=== PATIENT | male | born 1935 | race Caucasian/White ===

== ENCOUNTER 2016-12-30 07:05 | Observation (INO) | payer OTHER ==
[~2016-12-30] VITALS: Ht 172.7 cm; Wt 92.3 kg
[2016-12-30] VITALS (13 sets, daily range): BP systolic 106–148; BP diastolic 54–75; PULSE 72–90; RESP 16–24; O2SAT 92–100
--- NOTE | 2016-12-30 07:16 | ED.REPORT ---
HPI-Chest Pain 40 and Over Date of Service December 30, 2016 ED Provider: Chalo Lester DO The pt is a 81 y/o w/ a hx of COPD on 2L home O2, HTN, hyperlipidemia, male presenting to the ED with his complaining of chest pain onset yesterday. He describes the pain as a substernal pressure, experiences it w/ inspiration and has never experienced anything like this before. He also is experiencing SOB. He took an aspirin for the chest pain and took two ibuprofen for some tooth pain he was experiencing which helped w/ the pain. He was [facility] a [facility] ago and was told he had some slight lower extremity edema. He had a stress test in the past and was told he had a LBBB. If his O2 saturation level is in the 90s he does not use his oxygen machine but when it drops below that he sets it to 2 liters. When he exercises he sets it to 3-4 liters. He has also been experiencing a productive cough for the last year. Denies fever, pain or tingling in UE, or chills. He takes a daily 81 mg Aspirin. The reports the pt taking many medications but is not sure what they are and there are no records available - she is trying to obtain a list. Nursing Notes Stated Complaint: SOB,CHEST PAIN Chief Complaint: Chest pain Nursing Notes Reviewed: Yes Allergies: Coded Allergies: No Known Allergies (Unverified , 12/30/16) Scheduled Colchicine (Colchicine) 0.6 Mg Tablet 0.6 MG PO BID Tiotropium [place] (Spiriva) 18 Mcg Cap.w.dev 18 MCG IH BID General Time Seen by MD: 07:16 Chief Complaint Chest pain Hx Obtained From: Patient Arrived By: Walk-in Sudden in Onset?: Yes Onset Occurred: Yesterday Symptom Duration: Since onset Recent Healthcare: No recent doctor visit, No recent hospitalization Past Medical History Past Medical History Uses a CPAP machine LE edema Cough for the last year COPD HTN Hyperlipidemia Past Surgical History None reported Smoking History Former Smoker Social History Other Social History: Good social support Ambulatory Status Independent Review of Systems Denies pain or tingling in UE Constitutional: Denies: Chills, Fever Respiratory: Reports: Shortness of breath Cardiovascular: Reports: Chest pain, Edema (LE) Complete sys rev & neg: except as marked. Physical Exam Initial Vital Signs Vital Signs (First) Date Time Temp Pulse Resp B/P Pulse Ox O2 Delivery O2 Flow Rate FiO2 12/30/16 07:16 36.1 90 18 129/69 100 Nasal Cannula 4 Initial VS: Reviewed General/Constitutional: Awake, Alert Distress / Hydration: Positive: Distress mild Respiratory / Chest: Breath sounds NL, Breath sounds = bilat, No respiratory distress, No rales, No rhonchi, No wheezing, No stridor, No chest tenderness No chest tenderness Cardiovascular: Regular rhythm, Heart sounds NL Heart Rate / Rhythm: Positive: Tachycardia Trace LE edema Abdomen: Soft, Non-tender, McBurney's non-tender, No guarding, No rebound, BS normoactive, No distention, No hernia, No palpable mass Neck: Atraumatic, Supple, Full range of motion Back: Atraumatic, Full range of motion Lower Extremity / Pelvis / MS: Atraumatic, Full range of motion Skin: Atraumatic, Color NL, No rash, Warm, Dry Neurologic: Oriented X3, Speech NL Psychiatric: Affect NL, Mood NL Head / Eyes: Atraumatic, Normocephalic Interpretation & Diagnostics Lab Results Interpretation Result Diagram: 12/30/16 0715 12/30/16 0715 Test 12/30/16 07:15 12/30/16 07:44 White Blood Count 9.0th/mm3 (3.8-10.1) Red Blood Count 3.94mil/mm3 (4.40-5.80) Hemoglobin 13.1g/dL (13.8-17.2) Hematocrit 39.6% (41.0-50.0) Mean Corpuscular Volume 100.5fL (81-100) Mean Corpuscular Hemoglobin 33.2pg (27.0-35.0) Mean Corpuscular Hemoglobin Concent 33.1% (32.0-37.0) Red Cell Distribution Width 13.1% (12.3-15.4) Platelet Count 149bil/L (150-400) Neutrophils (%) (Auto) 72.3% (40-74) Lymphocytes (%) (Auto) 13.3% (14-46) Monocytes (%) (Auto) 9.9% (4-12) Eosinophils (%) (Auto) 4.1% (0-5) Basophils (%) (Auto) 0.2% (0-3) Sodium Level 138mEq/L (134-144) Potassium Level 4.2mEq/L (3.5-5.2) Chloride Level 100mEq/L (97-108) Carbon Dioxide Level 21mmol/L (18-29) Blood Urea Nitrogen 22mg/dL (8-27) Creatinine 0.96mg/dL (0.76-1.27) Estimat Glomerular Filtration Rate 80mL/min (>59) Glucose Level 137mg/dL (60-99) Calcium Level 9.6mg/dL (8.5-10.1) Magnesium Level 1.8mg/dL (1.6-2.6) Total Bilirubin 1.0mg/dL (0.0-1.2) Aspartate Amino Transf (AST/SGOT) 30U/L (0-50) Alanine Aminotransferase (ALT/SGPT) 30U/L (0-44) Alkaline Phosphatase 125U/L (25-160) Troponin T 0.010ug/L (0.0-0.011) Total Protein 7.4g/dL (6.4-8.4) Albumin 4.2g/dL (3.4-5.0) D-Dimer 2.63mg/L FEU (<0.50) Pro-B-Type Natriuretic Peptide 462.6pg/mL (0-486) Hold Lopez Top Tube Received (Received) ECG Interpretation ECG Interpretation: Rate 89 Sinus rhythm normal LBBB Time: 07:25 Interpreted by: ED physician Repeat ECG: Repeat ECG unchanged X-Ray Chest Interpretation Chest Xray Interpretation: IMPRESSION: 1. Findings compatible with COPD without definite acute cardiopulmonary disease. Dictated by: Mono Santana M.D. on 12/30/2016 at 9:58 Approved by: Mono Santana M.D. on 12/30/2016 at 9:59 View: Portable, [address] Chest Interpretation IMPRESSION: 1. No evidence of pulmonary embolism. 2. 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 Recommend further evaluation with thyroid ultrasound to assess for possible percutaneous fine needle aspiration. 3. Jitu-oa-bycomhbz centrilobular emphysematous changes in the lungs. Dictated by: Mono Santana M.D. on 12/30/2016 at 8:47 Approved by: Mono Santana M.D. on 12/30/2016 at 8:55 Interpretation / Wet Read by: Interpret - Radiologist Re-Eval/Medical Decision Med Decision/Clinical Course Concern for unstable angina. Patient will be admitted. Source of Hx: Old records Time of Eval: 08:16 Re-Evaluation/Progress Note: CP decreased after nitro administration but still present. Repeat EKG unchanged. Time of Eval: 09:21 Re-Evaluation/Progress Note: Pt rechecked. Informed pt of need for admission. Pt understands and agrees with plan for admission. All questions addressed. Consultation : Referral / Consult Name: Mary Kirkland DO Consulted With: Hospitalist Call Returned at: 19:15 Fender Finisher: Will see patient, Agrees with eval, Agrees with plan, Accepts admit Counseled Regarding: Diagnosis, Lab results, Need for admission Discharge & Departure Primary Impression: Unstable angina Disposition: ADMITTED TO HOSPITAL Discharge Condition All VS Reviewed: Yes Condition: Stable Scribe Attestation Portions of this note were transcribed by Brendon House and Earl Moncada. I, Dr. Elbert Walker personally performed the history, physical exam and medical decision- making; I reviewed and confirmed the accuracy of the information in the transcribed note. Signed by: Radha Ignacio, 12/30/16 and 0939. Chalo Lester DO December 30, 2016 07:16 Brendon House December 30, 2016 08:34 EARL MONCADA December 30, 2016 09:51
[2016-12-30 07:50] LABS: BASOPHILS % (AUTO) 0.2 % (0-3); EOSINOPHILS % (AUTO) 4.1 % (0-5); MONOCYTES % (AUTO) 9.9 % (4-12); Mean Corpuscular Hemoglobin 33.2 pg (27.0-35.0); Mean Corpuscular Volume 100.5 fL (81-100); NEUTROPHILS % (AUTO) 72.3 % (40-74); Platelet Count 149 bil/L (150-400)
[2016-12-30 08:18] LABS: TROPONIN T 0.01 ug/L (0.0-0.011)
[2016-12-30 08:29] LABS: Magnesium 1.8 mg/dL (1.6-2.6)
[2016-12-30] MEDS ORDERED: COLC0.6T55 PO (08:37)
[2016-12-30] MEDS ORDERED: TIOT18CA3 IH (08:37)
--- NOTE | 2016-12-30 09:02 | DRSVH ---
PROCEDURE: CT ANGIO CHEST PULMONARY EMBOLISM ([id number]) INDICATIONS: chest pain elevated ddimer TECHNIQUE: After the administration of intravenous contrast, 2 mm thick sections acquired from the pulmonary api berenice to the posterior costophrenic angles. 3-dimensional maximum intensity projection (MIP) coronal a nd sagittal reformats were then acquired through the thorax. For radiation dose reduction, the follo wing was used: automated exposure control, adjustment of mA and/or kV according to patient size. COMPARISON: [facility], CR, XR CHEST 1VW (PORTABLE), 12/30/2016, 7:07. FINDINGS: Image quality: Excellent. Pulmonary arteries: Pulmonary arteries are normal in size, and demonstrate no intraluminal filling d efects to suggest central pulmonary embolism. Lungs and pleura: There is mild atelectasis or scarring in the lung bases. Mild to moderate centrilo bular emphysematous changes are demonstrated. No pleural effusions or pneumothorax. Central and per ipheral airways are patent. Mediastinum: Heart size is normal, without pericardial effusion. There is coronary arterial vascula r calcification. No mediastinal or hilar adenopathy. There is a substernal mass partially visualize d likely originating from the right thyroid lobe measuring approximately 3.2 x 2.8 in transverse dime nsion by at least 4 cm in craniocaudal dimension. This demonstrates a few peripheral foci of calcifi cations. Thoracic aorta is normal in caliber and enhancement. Esophagus is normal in caliber, witho ut hiatal hernia. Bones and chest wall: No suspicious bony lesions. Ribs and thoracic spine appear intact throughout. Multilevel degenerative disc disease is demonstrated throughout the thoracic spine. No axillary or supraclavicular adenopathy. Abdomen: Visualized upper abdomen demonstrates a probable exophytic right renal cyst which is partia lly visualized as well as a small exophytic left renal cyst. There are encapsulated areas of fat lio ng the right diaphragmatic kimberley adjacent to the visualized abdominal aorta with mild associated mass effect. IMPRESSION: 1. No evidence of pulmonary embolism. 2. 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 Recommend further evaluation with thyroid ultrasound to assess for possible percutaneous fine needl e aspiration. 3. Ekre-bm-lnsvfbjd centrilobular emphysematous changes in the lungs. Dictated by: Mono Santana M.D. on 12/30/2016 at 8:47 Approved by: Mono Santana M.D. on 12/30/2016 at 8:55
--- NOTE | 2016-12-30 10:06 | DRSVH ---
PROCEDURE: X-RAY CHEST ONE VIEW, PORTABLE ([id number]) INDICATIONS: chest pain TECHNIQUE: One view of the chest was acquired. COMPARISON: [facility], CT, CT ANGIO CHEST PE, 12/30/2016, 8:45. FINDINGS: Surgical changes and devices: None. Lungs and pleura: No pleural effusions or pneumothorax. There are linear opacities in the lung base s likely representing scarring. There is hyperinflation of the lungs with flattening of the hemidiaph ragms compatible with COPD. Mediastinum: Mediastinal contours appear normal. Heart size is normal. Bones and chest wall: No suspicious bony lesions. Overlying soft tissues appear unremarkable. IMPRESSION: 1. Findings compatible with COPD without definite acute cardiopulmonary disease. Dictated by: Mono Santana M.D. on 12/30/2016 at 9:58 Approved by: Mono Santana M.D. on 12/30/2016 at 9:59
[2016-12-30] MEDS ORDERED: Alum-Mag Hydrox-Simeth 30 mL Suspension PO PRN ×2 (10:25→13:40)
[2016-12-30] MEDS ORDERED: Ondansetron 2 mg/mL 2 mL Inj IVPUSH PRN ×2 (10:25→13:40)
--- NOTE | 2016-12-30 13:00 | PCM.HPMED ---
Subjective Date of Service December 30, 2016 Primary Provider: Admitting Physician: Myra Adams MD Primary Care Physician: Noprobert Attending Physician: Myra Adams MD Allergies Coded Allergies: No Known Allergies (Unverified , 12/30/16) PMH Social History Hx Alcohol Use: Yes (occasionally) Hx Substance Use: No Smoking Status: Former Smoker Exam Vital Signs Vital Sign - Last Date Time Temp Pulse Resp B/P Pulse Ox O2 Delivery O2 Flow Rate FiO2 12/30/16 11:33 81 12/30/16 11:21 Supplement Oxygen 12/30/16 11:17 36.7 22 132/75 96 2.00 Lab and Diagnostics Result Diagram: 12/30/16 0715 12/30/1615 Assessment & Plan HPI: Patient is an 81-year-old male who presents to the emergency room with the complaint of chest pain. The patient states that he has been having chest pain since yesterday however he thought that it would go away. When the chest pain did not go away he decided to tell both his and daughter with whom he is currently traveling. The patient states that he does not have any history of CAD or angina and that this is new for him however his PCP has recently put him on "a water pill" because he was having some lower extremity edema. However no formal diagnosis of CHF with made. The patient currently states that he has some shortness of breath, no chest pain this has been relieved since the ER, no nausea, no vomiting, no diarrhea. The patient does have a chronic cough. Home medications: Allopurinol 100 mg 2 tabs by mouth daily Spiriva inhale 1 puff every morning Atenolol 50 mg 1 tab by mouth daily Losartan 25 mg 1 tab by mouth daily Atorvastatin 40 mg by mouth daily Clindamycin phosphate topical solution when necessary dry scalp Proventil when necessary Omeprazole 20 mg 1 by mouth twice a day 30-60 minutes before a meal Guaifenesin 400 mg tabs 1 tab by mouth twice a day Hydrochlorothiazide/triamterene 25/37.5 milligrams 1 by mouth daily Symbicort 160 g 2 puffs in the morning 2 puffs at night Respiratonic 2 drops by mouth daily (medication) A stool softener 100 mg by mouth one Twice a day Zolpidem 1 tab by mouth daily at bedtime when necessary sleep Tamsulosin 0.4 mg daily Allergies: No known allergies PMHx: Hypertension COPD Hyperlipidemia BPH. Constipation GERD Gout Pityriasis SHx: Left great toe surgery Bilateral knee replacements Left total hip replacement Bilateral shoulder replacements FHx: Mother in childbirth Father age 72 from colon cancer Brother age 63 from melanoma cancer SocHx: Occupation: Former law enforcement and Tobacco history: Quit 35 years ago previous smoking history one pack per day for 25 years Alcohol use: Occasional Drug use: Patient denies ROS: A complete review of systems was performed or attempted to be performed. Please see HPI for pertinent positives, all other systems are negatives. Physical Exam: GEN: Patient was awake, alert, responding appropriately to questions HEENT: Pupils equal round and reactive to light, extraocular eye muscles intact , Neck soft supple, trachea midline, nomocephalic/atraumati, oxygen in place CV: +S1/S2, regular rate and rhythm, no murmur auscultated Respiratory: Positive mild wheeze no rales or rhonchi GI: +bowel sounds x4, soft, compressible, nontender to palpation EXT: no clubbing, cyanosis, trace edema Neuro: Cranial nerves II-XII grossly intact Psych: mood and affect were appropriate Assessment and Plan 81-year-old male with the complaint of chest pain Chest pain/angina -Trend troponins -If negative stress test in the morning -Nitroglycerin when necessary -Nothing by mouth at midnight - Hemoglobin A1c pending -Aspirin 325 mg daily -Echo -Follow up labs morning -Continue to monitor Hypertension (currently stable) -Continue home medication of atenolol however decrease the dose to 25 mg daily -Hold home dose of losartan 25 mg daily -Hold home dose of HCTZ 25 mg daily -Hold home dose triamterene 37.5 mg by mouth daily -Continue to monitor blood pressure at this time the patient's blood pressure is relatively stable at 132/75. We will continue to monitor and restart patient 's home medications as needed. Hyperlipidemia -Atorvastatin 40 mg daily -Lipid panel pending COPD (currently stable) -Continue oxygen 2 L while sleeping and at rest, 3 L with activity -Maintain oxygen saturations at 88% and above -If patient is at rest and satting at 88% or above the patient may remove his oxygen only while at rest -Continue Mucinex twice a day -Continue Spiriva and Symbicort BPH (currently stable) -Continue tamsulosin 0.4 mg daily GERD -20 mg of omeprazole twice a day 30-60 minutes prior to meals Constipation -Colace 100 mg twice a day Insomnia -Restoril 30 mg when necessary Diet: Heart healthy DVT prophylaxis: Heparin subcutaneous 3 times a day Code Status: Full code Disposition: Due to the nature of the patient's current diagnosis anticipated stay is greater than 2 midnight Time spent One hour Mary Kirkland DO December 30, 2016 13:00
[2016-12-30] MEDS ORDERED: Polyethylene Glycol (PEG) 17 Gm Powder PO PRN (13:40)
[2016-12-30] MEDS ORDERED: Albuterol HFA 60 Puff 8 Gm Inhaler INHALATION PRN (14:00)
[2016-12-30] MEDS ORDERED: Budesonide-Formot 160-4.5 mCg 6.9 Gm Inhaler INHALATION SCH (14:00)
[2016-12-30] MEDS ORDERED: Albuterol 2.5 mg/3 mL Inhalation Solution NEB PRN (14:20)
[2016-12-30] MEDS ORDERED: ZYL100 PO (14:44)
[2016-12-30] MEDS ORDERED: LOSA25TA21 PO (14:45)
[2016-12-30] MEDS ORDERED: ATEN50TA PO (14:45)
[2016-12-30] MEDS ORDERED: LIP40 PO (14:46)
[2016-12-30] MEDS ORDERED: ALBU6.7H INH (14:47)
[2016-12-30] MEDS ORDERED: CLIN60SO2 TOP (14:47)
[2016-12-30] MEDS ORDERED: [UNRECOGNIZED DRUG - OTHER] PO (14:48)
[2016-12-30] MEDS ORDERED: DOCU240C41 PO (14:48)
[2016-12-30] MEDS ORDERED: TAMS0.4C98 PO (14:49)
[2016-12-30] MEDS ORDERED: OMEP20CA11 PO (14:49)
[2016-12-30] MEDS ORDERED: ZOLP5TAB6 PO (14:49)
[2016-12-30] MEDS ORDERED: GUAI400T57 PO (14:50)
[2016-12-30] MEDS ORDERED: TRIA1CAP5 PO (14:51)
[2016-12-30] MEDS ORDERED: SYMINH INHALATION (14:51)
[2016-12-30] MEDS: Tiotropium 18mcg/Cap 5 Capsule Inhaler Kit INHALATION SCH (14:59)
[2016-12-30] MEDS: Albuterol 2.5 mg/3 mL Inhalation Solution NEB SCH ×2 (16:30→19:51)
[2016-12-30] MEDS: Pantoprazole 20 mg ER24 Tablet PO SCH (16:42)
[2016-12-30] MEDS: Heparin 5,000 Unit/mL Inj SUBQ SCH (16:43)
--- NOTE | 2016-12-30 18:09 | PCM.ADCARE ---
Advance Care Planning Note Plan: Purpose of encounter: Goals of care Parties in attendance: The patient, his , and daughter Decisional capacity: Good Plan: The patient is aware of the current diagnosis and would like to continue to be full code. The patient and family understands that this means for chest compressions, intubation, pressors, and all measures involved with CPR. CODE STATUS: Full code Time spent with advanced care planning: Greater than 16 minutes Mary Kirkland DO December 30, 2016 18:09
[2016-12-30] MEDS: Fluticasone-Salmeterol 500-50 Inhaler INHALATION SCH (19:49)
[2016-12-30] MEDS: guaiFENesin 600 mg ER12 Tablet PO SCH (19:49)
[2016-12-31] VITALS (10 sets, daily range): BP systolic 107–118; BP diastolic 57–66; PULSE 70–90; RESP 16–20; O2SAT 92–98
[2016-12-31] MEDS: Albuterol 2.5 mg/3 mL Inhalation Solution NEB SCH ×4 (00:11→20:30)
[2016-12-31] MEDS: Heparin 5,000 Unit/mL Inj SUBQ SCH ×3 (00:30→16:00)
[2016-12-31 06:41] LABS: Mean Corpuscular Hemoglobin 32.8 pg (27.0-35.0); Mean Corpuscular Volume 100.3 fL (81-100)
[2016-12-31 07:19] LABS: Magnesium 1.8 mg/dL (1.6-2.6); Phosphorus 3.7 mg/dL (2.5-4.9)
[2016-12-31] MEDS: Pantoprazole 20 mg ER24 Tablet PO SCH ×2 (10:45→15:58)
[2016-12-31] MEDS: guaiFENesin 600 mg ER12 Tablet PO SCH (10:45)
[2016-12-31] MEDS: Tiotropium 18mcg/Cap 5 Capsule Inhaler Kit INHALATION SCH (10:46)
[2016-12-31] MEDS: Fluticasone-Salmeterol 500-50 Inhaler INHALATION SCH (10:46)
--- NOTE | 2016-12-31 12:18 | DRSVH ---
PROCEDURE: 1 DAY PHARMACOLOGICAL STRESS TEST Rest and pharmacological stress myocardial perfusion SPECT; gated images not acquired. RADIOPHARMACEUTICAL: 10.7 mCi Tc-99m tetrafosmin IV at rest and 32.1 mCi Tc-99m tetrafosmin IV at pea k effect of pharmacological stress. Cxy-gbo-rxeytkzo was performed. INDICATIONS: 81 year-old man with chest pain and dyspnea. The patient has hypertension, hyperlipidem ia and passed smoking as risk factors for coronary artery disease. TECHNIQUE: Radiopharmaceutical was injected at peak stress test, and also at rest. SPECT images wer e obtained. SPECT myocardial perfusion images were displayed in short axis, horizontal long axis, an d vertical long axis views. Images were reviewed using [employer] software. COMPARISON: None. CARDIAC STRESS: A pharmacologic stress test was performed under the supervision of an attending staff, using an infus ion of [employer]. Hemodynamic data: There is normal blood pressure and heart rate response to pharmacologic stress. Symptoms: The patient denied anginal chest pain. Aminophylline: Not needed. EKG: LBBB and first degree AV block. No diagnostic changes of ischemia; occasional PVCs. FINDINGS: Raw data: There is good myocardial uptake of radiotracer. No significant motion artifacts. Left ventricle function: Gated images were unable to be obtained for functional assessment, due to i rregular heart rate. Myocardial perfusion: There is normal distribution of activity in the right and left ventricular geoffrey cardium. No fixed or reversible perfusion defects. IMPRESSION: 1. Normal myocardial perfusion images. 2. Gated images could not be obtained due to irregular heart rate. 3. No chest pain or diagnostic EKG changes for ischemia. PQRS ATTESTATIONS: Measure 322 - Is this imaging test primarily performed on a low-risk surgery patient for preoperative evaluation within 30 days preceding their low-risk non-cardiac surgery? Low-risk surgery is defined as cardiac or myocardial infarction less than 1%, including (but not limited to) endoscopic pr ocedures, superficial procedures, cataract surgery, and excisional breast surgery: Answer: No Measure 323 - Is this imaging test performed primarily for the monitoring of an asymptomatic patient who had percutaneous coronary intervention on the visit date or within 2 years of the visit date? An swer: No Measure 324 - Is this imaging test performed primarily for the initial detection and risk assessment on an asymptomatic, low coronary heart disease patient? Low CHD risk definition = clinicians should consider the maximum number of available patient factors used to estimate risk based on [place] (A TP III criteria), typically age, gender, diabetes, smoking status, and use of blood pressure medicati on, and integrate age appropriate estimates for missing elements, such as LDL or standard blood press ure. Answer: No Dictated by: Xena Long M.D. on 12/31/2016 at 12:13 Transcribed by: JESUS on 12/31/2016 at 12:18 Approved by: Xena Long M.D. on 12/31/2016 at 13:38
--- NOTE | 2016-12-31 15:56 | DRSVH ---
[facility] [address] [place] [address] Echocardiogram Report Name: WANG DAVIS Date: 12/31/2016 Height: 68 in Hospital Exam Location: [facility] Weight: 203 lb Gender: Male BSA: 2.1 m2 : 1935 Age: 81 yrs BP: 112/50 mmHg Reason For Study: SOB Ordering Physician: Performed By: [facility] Interpretation Summary The left ventricle is normal in size. The ejection fraction is estimated to be 50-55%. The right ventricle is normal in size and function. There is mild tricuspid regurgitation. The right ventricular systolic pressure is estimated at 45 mmHg assuming a right atrial pressure of 8 mm Hg. Procedure: A two-dimensional transthoracic echocardiogram with color flow and Doppler was performed. The study quality was technically adequate. There is no prior echocardiogram noted for this patient. The patient was in normal sinus rhythm during the exam. Left Ventricle: The left ventricle is normal in size. Left ventricular wall thickness is normal. The ejection fraction is estimated to be 50-55%. Septal motion is consistent with conduction abnormality. There is septal wall hypokinesis. The E/A ratio is reversed with an elevated E/E', suggesting impaired early relaxation of the left ventricle with possible increased filling pressures. Right Ventricle: The right ventricle is normal in size and function. The right ventricle appears to be hypertrophied. Atria: The left atrial size is normal. Right atrial size is normal. A prominent eustachian valve is noted. The interatrial septum is intact with no evidence for an atrial septal defect. Mitral Valve: There is mild mitral annular calcification. The mitral valve leaflets appear thickened, but open well. There is trace mitral regurgitation. Aortic Valve: The aortic valve opens well. The aortic valve is not well visualized. There is no aortic valve stenosis. No aortic regurgitation is present. Tricuspid Valve: The tricuspid valve is normal in structure and function. There is mild tricuspid regurgitation. The right ventricular systolic pressure is estimated at 45 mmHg assuming a right atrial pressure of 8 mm Hg. Pulmonic Valve: The pulmonic valve is not well seen, but is grossly normal. There is trace pulmonic regurgitation. Great Vessels: The aortic root is normal size. The IVC is of normal diameter and collapses less than 50% with a sniff. This suggests a right atrial pressure of 8 mm Hg. Pericardium/ Pleura There is no pericardial effusion. There is an anterior echo-free space consistent with a fat pad. There is no pleural effusion. MMode/2D Measurements & Calculations LVIDd: 4.5 cm LA dimension: 3.6 cm RA long axis Ao root diam LVIDs: 3.7 cm FS: 17.4 % LA A2 area: 23.5 cm RA area Aortic Jxn IVSd: 1.1 cm LA A4 area: 22.6 cm : 2.9 cm LVPWd: 0.85 cm LA length (vol): 6.4 cm : 20.3 cm LA vol: 70.2 ml RA vol: 61.3 ml LA vol index RA : 29.8 mm/ RVDd major IVC diam: 1.8 cm : 6.4 cm LV sheppard. diameter/BSA LV sys. diameter/BSA RVD1 (basal) RVD2 (mid) (cm/m^2): 2.2 (cm/m^2): 1.8 : 3.5 cm Doppler Measurements & Calculations Ao V2 max MV E max valerio MV E/A: 0.92 TR max valerio : 158.6 cm/sec : 82.7 cm/sec Med Peak E' Valerio : 303.7 cm/sec Ao max P.1 mmHg MV A max valerio TR max PG Ao mean P.9 mmHg : 90.0 cm/sec E/E' med: 10.9 : 36.9 mmHg MV P1/2t Lat Peak E' Valerio PA V2 max : 70.1 msec : 98.6 cm/sec E/E' lat: 9.9 PA mean PG E/e' average PA Accel Time Pulm A Revs Dur : 0.12 sec MV A dur: 0.16 sec MV dec time: 0.24 sec MV P1/2t max valerio Ao V2 mean PA V2 mean : 103.5 cm/sec : 65.8 cm/sec MVA(P1/2t) Ao V2 VTI: 32.2 cm : 3.1 cm2 Pulm A Revs Dur - MV A Dur: -0.03 msec Reading Physician:PM
[2016-12-31] MEDS ORDERED: ATEN25TA PO (17:18)
--- NOTE | 2016-12-31 17:24 | PCM.DIMED ---
Discharge Instructions Date of Service December 31, 2016 Dates of Hospitalization December 30, 2016 at 10:32 Discharge Diagnosis Discharge Diagnosis Angina most likely secondary to hypotension Hypertension (he currently controlled) Hyperlipidemia COPD BPH GERD Constipation Insomnia Medication Instructions Some of your blood pressure medications have been stopped including the hydrochlorothiazide and triamterene Please note that your atenolol medication is now half of what it was previously. Please do not take your dose of atenolol 50 mg. You will start taking the new dose of atenolol at 25 mg Diet Heart Healthy Activity No restrictions (gradually return to normal daily activities) Patient Instructions Follow-up plan When you return to [place] please follow up with your primary care physician in [facility]. 2 of your blood pressure medications have been stopped ( triamterene and hydrochlorothiazide) and one of your blood pressure medications has been decreased by half (atenolol). Your blood pressure was too low and this is most likely the cause of your chest pain as her echo showed an EF of 50- 55% and your stress test was normal. Follow-up with PCP in: 2 weeks (please call your primary care doctor when he arrived home and set up follow-up appointment) Mary Kirkland DO December 31, 2016 17:24
--- NOTE | 2016-12-31 17:34 | PCM.DC.MED ---
Discharge Summary Date of Service December 31, 2016 Dates of Hospitalization Date of Hospital Admission December 30, 2016 at 10:32 Date of Discharge: December 31, 2016 Providers: Admitting Physician: Myra Davis MD Primary Care Physician: Noprobert Attending Physician: Myra Davis MD Diagnosis at Time of Discharge Diagnosis at Time of Discharge Angina most likely secondary to hypotension Hypertension (he currently controlled) Hyperlipidemia COPD BPH GERD Constipation Insomnia Procedures Cardiac Echo Impression Patient Name: WANG DAVIS MR#: [id number] Location: [facility] Ordering Phys: Mary Kirkland DO Date of Service: 12/31/16 1359 PROCEDURE: 1 DAY PHARMACOLOGICAL STRESS TEST Rest and pharmacological stress myocardial perfusion SPECT; gated images not acquired. IMPRESSION: 1. Normal myocardial perfusion images. 2. Gated images could not be obtained due to irregular heart rate. 3. No chest pain or diagnostic EKG changes for ischemia. PQRS ATTESTATIONS: Measure 322 - Is this imaging test primarily performed on a low-risk surgery patient for preoperative evaluation within 30 days preceding their low-risk non- cardiac surgery? Low-risk surgery is defined as cardiac or myocardial infarction less than 1%, including (but not limited to) endoscopic procedures, superficial procedures, cataract surgery, and excisional breast surgery: Answer : No Measure 323 - Is this imaging test performed primarily for the monitoring of an asymptomatic patient who had percutaneous coronary intervention on the visit date or within 2 years of the visit date? Answer: No Measure 324 - Is this imaging test performed primarily for the initial detection and risk assessment on an asymptomatic, low coronary heart disease patient? Low CHD risk definition = clinicians should consider the maximum number of available patient factors used to estimate risk based on [place] ( ATP III criteria), typically age, gender, diabetes, smoking status, and use of blood pressure medication, and integrate age appropriate estimates for missing elements, such as LDL or standard blood pressure. Answer: No Dictated by: Xena Long M.D. on 12/31/2016 at 12:13 Transcribed by: JESUS on 12/31/2016 at 12:18 Approved by: Xena Long M.D. on 12/31/2016 at 13:38 Echocardiogram Report Name: WANG DAVIS EStudy Date: 0 12/31/2016 Height: 68 in Hospital Exam Location: [facility] Weight: 203 lb Gender: Male BSA: 2.1 m2 : 1935 Age: 81 yrs BP: 112/50 mmHg Reason For Study: SOB Ordering Physician: Performed By: [facility] Interpretation Summary The left ventricle is normal in size. The ejection fraction is estimated to be 50-55%. The right ventricle is normal in size and function. There is mild tricuspid regurgitation. The right ventricular systolic pressure is estimated at 45 mmHg assuming a right atrial pressure of 8 mm Hg. Reading Physician:CHYNA Brief History Patient is an 81-year-old male who presents to the emergency room with the complaint of chest pain. The patient states that he has been having chest pain since yesterday however he thought that it would go away. When the chest pain did not go away he decided to tell both his and daughter with whom he is currently traveling. The patient states that he does not have any history of CAD or angina and that this is new for him however his PCP has recently put him on "a water pill" because he was having some lower extremity edema. However no formal diagnosis of CHF with made. The patient currently states that he has some shortness of breath, no chest pain this has been relieved since the ER, no nausea, no vomiting, no diarrhea. The patient does have a chronic cough. Hospital Course 81-year-old male with the complaint of chest pain The patient presented with the complaint of chest pain which was angina most likely secondary to hypotension. It was noted that the patient's blood pressure had been running in the systolics low 100s and diastolics low 60s upper 50s. The patient had his atenolol decreased from 50 mg daily to 25 mg daily and losartan, triamterene, and HCTZ were all stopped. A BNP was taken and the patient ran in the upper limits of normal and a repeat showed lower limits of abnormal. At this time a formal diagnosis of CHF cannot be made for this patient. The patient has had no signs of volume overload and has been relatively stable since stopping the majority of his blood pressure medications. The patient denies any further chest pains and has been doing well while here. The patient had negative troponins 3, the echo did show a slightly decreased ejection fraction of 50-55% and mild tricuspid regurg, the patient also had a negative stress test. At this time the patient has been discharged in stable condition with the changes in blood pressure medications. The patient has been instructed to follow-up with his primary care once returning back to [place] for further management by his primary care. The patient is seen at the [facility] in [facility] . For full hospital course see below: Chest pain/angina -Trend troponins -If negative stress test in the morning -Nitroglycerin when necessary -Nothing by mouth at midnight -Aspirin 325 mg daily -Echo -Follow up labs morning -Continue to monitor Hypertension (currently stable) -Continue home medication of atenolol however decrease the dose to 25 mg daily -Hold home dose of losartan 25 mg daily -Hold home dose of HCTZ 25 mg daily -Hold home dose triamterene 37.5 mg by mouth daily -Continue to monitor blood pressure at this time the patient's blood pressure is relatively stable at 132/75. We will continue to monitor and restart patient 's home medications as needed. Hyperlipidemia -Atorvastatin 40 mg daily -Lipid panel pending COPD (currently stable) -Continue oxygen 2 L while sleeping and at rest, 3 L with activity -Maintain oxygen saturations at 88% and above -If patient is at rest and satting at 88% or above the patient may remove his oxygen only while at rest -Continue Mucinex twice a day -Continue Spiriva and Symbicort BPH (currently stable) -Continue tamsulosin 0.4 mg daily GERD -20 mg of omeprazole twice a day 30-60 minutes prior to meals Constipation -Colace 100 mg twice a day Insomnia -Restoril 30 mg when necessary Diet: Heart healthy DVT prophylaxis: Heparin subcutaneous 3 times a day Code Status: Full code Exam Vital Signs (Last) Date Time Temp Pulse Resp B/P Pulse Ox O2 Delivery O2 Flow Rate FiO2 12/31/16 15:54 36.7 70 16 109/62 94 Nasal Cannula 1.50 Exam Physical Exam: GEN: Patient was awake, alert, responding appropriately to questions HEENT: Pupils equal round and reactive to light, extraocular eye muscles intact , Neck soft supple, trachea midline, nomocephalic/atraumatic CV: +S1/S2, regular rate and rhythm, no murmurs auscultated Respiratory: Decreased breath sounds but no wheezes rales or rhonchi GI: +bowel sounds x4, soft, compressible, nontender to palpation EXT: no clubbing, cyanosis, edema Neuro: Cranial nerves II-XII grossly intact Psych: mood and affect were appropriate Test 12/30/16 07:15 12/30/16 07:44 12/30/16 11:50 12/30/16 19:18 Neutrophils (%) (Auto) 72.3% (40-74) Lymphocytes (%) (Auto) 13.3% (14-46) Monocytes (%) (Auto) 9.9% (4-12) Eosinophils (%) (Auto) 4.1% (0-5) Basophils (%) (Auto) 0.2% (0-3) D-Dimer 2.63mg/L FEU (<0.50) Hold Lopez Top Tube Received (Received) Pro-B-Type Natriuretic Peptide 522.2pg/mL (0-486) Triglycerides Level 55mg/dL (0-149) Cholesterol Level 122mg/dL (100-199) LDL Cholesterol, Calculated 51.000mg/dL (0-99) VLDL Cholesterol 11.000mg/dL HDL Cholesterol 60mg/dL (>39) Cholesterol/HDL Ratio 2.03 (0.0-4.4) Troponin T < 0.010ug/L (0.0-0.011) Test 12/31/16 06:15 White Blood Count 7.4th/mm3 (3.8-10.1) Red Blood Count 3.57mil/mm3 (4.40-5.80) Hemoglobin 11.7g/dL (13.8-17.2) Hematocrit 35.8% (41.0-50.0) Mean Corpuscular Volume 100.3fL (81-100) Mean Corpuscular Hemoglobin 32.8pg (27.0-35.0) Mean Corpuscular Hemoglobin Concent 32.7% (32.0-37.0) Red Cell Distribution Width 13.4% (12.3-15.4) Platelet Count 139bil/L (150-400) Sodium Level 138mEq/L (134-144) Potassium Level 4.3mEq/L (3.5-5.2) Chloride Level 100mEq/L (97-108) Carbon Dioxide Level 24mmol/L (18-29) Blood Urea Nitrogen 22mg/dL (8-27) Creatinine 1.00mg/dL (0.76-1.27) Estimat Glomerular Filtration Rate 76mL/min (>59) Glucose Level 135mg/dL (60-99) Calcium Level 8.9mg/dL (8.5-10.1) Phosphorus Level 3.7mg/dL (2.5-4.9) Magnesium Level 1.8mg/dL (1.6-2.6) Total Bilirubin 0.7mg/dL (0.0-1.2) Aspartate Amino Transf (AST/SGOT) 24U/L (0-50) Alanine Aminotransferase (ALT/SGPT) 23U/L (0-44) Alkaline Phosphatase 105U/L (25-160) Total Protein 6.3g/dL (6.4-8.4) Albumin 3.7g/dL (3.4-5.0) Thyroid Stimulating Hormone (TSH) 0.531uIU/mL (0.450-4.500) Discharge Medications Discharge Medications ([respiratonic oral]) 2 GTTS PO DAILY (Reported) Allopurinol (Allopurinol) 100 Mg Tablet 200 MG PO DAILY (Reported) Atenolol (Atenolol) 25 Mg Tablet 25 MG PO DAILY Prescribed by: MARY KIRKLAND DO Atorvastatin (Lipitor) 40 Mg Tablet 40 MG PO HS (Reported) Budesonide/Formoterol 160-4.5 mcg Inh (Symbicort 160-4.5 mcg Inh) 120 Puff Inhaler 2 PUFF INHALATION BID (Reported) Colchicine (Colchicine) 0.6 Mg Tablet 0.6 MG PO BID (Reported) Docusate Calcium (Stool Softener) 240 Mg Capsule 1 CAPSULE PO BID (Reported) Guaifenesin (Guaifenesin) 400 Mg Tablet 400 MG PO BID (Reported) Omeprazole (Omeprazole) 20 Mg Capsule.dr 20 MG PO BID (Reported) Tamsulosin (Flomax) 0.4 Mg Capsule 0.4 MG PO BID (Reported) Tiotropium [place] (Spiriva) 18 Mcg Cap.w.dev 18 MCG IH BID (Reported) As needed Albuterol Sulfate (Proventil HFA Inhaler) 6.7 Gm Hfa.aer.ad 1 PUFF INH Q4 PRN PRN For Shortness of Breath (Reported) Clindamycin Phosphate (Clindamycin Phosphate Topical) 60 Ml Solution 1 APPLIC TOP BID PRN PRN dry scalp (Reported) Zolpidem (Zolpidem) 5 Mg Tablet 5 MG PO HS PRN PRN For Insomnia (Reported) Additional med instructions Some of your blood pressure medications have been stopped including the hydrochlorothiazide and triamterene Please note that your atenolol medication is now half of what it was previously. Please do not take your dose of atenolol 50 mg. You will start taking the new dose of atenolol at 25 mg Followup Plan Follow-up plan When you return to [place] please follow up with your primary care physician in [facility]. 2 of your blood pressure medications have been stopped ( triamterene and hydrochlorothiazide) and one of your blood pressure medications has been decreased by half (atenolol). Your blood pressure was too low and this is most likely the cause of your chest pain as her echo showed an EF of 50- 55% and your stress test was normal. Discharge Diet: Heart Healthy Discharge Activity: No restrictions (gradually return to normal daily activities) Follow-up with PCP in: 2 weeks (please call your primary care doctor when he arrived home and set up follow-up appointment) Time spent Greater than 35 minutes Mary Kirkland DO December 31, 2016 17:34
== END 2016-12-31 18:45 | disposition home or self-care (01) ==
LOC: SED 07:05 → MPC 10:32
PROVIDERS: ADMIT Neuromusculoskeletal Medicine & OMM; ATTEND Neuromusculoskeletal Medicine & OMM
DX: I20.9 Angina pectoris, unspecified (principal); R07.9 Chest pain, unspecified; I10 Essential (primary) hypertension; E78.5 Hyperlipidemia, unspecified; J44.9 Chronic obstructive pulmonary disease, unspecified; N40.0 Benign prostatic hyperplasia without lower urinary tract symptoms; K21.9 Gastro-esophageal reflux disease without esophagitis; K59.00 Constipation, unspecified; G47.00 Insomnia, unspecified; M10.9 Gout, unspecified; R60.1 Generalized edema; Z99.81 Dependence on supplemental oxygen; Z87.891 Personal history of nicotine dependence; Z79.51 Long term (current) use of inhaled steroids
CPT/HCPCS: 36415; 71010; 71275; 78452; 80053; 80061; 83036; 83735; 83880; 84100; 84443; 84484; 85025; 85027; 85378; 93005; 93017; 94640; 94664; 99285; A9502; C8929; G0378; J1644; J2785; J7613; Q9967